=== PATIENT | female | born 1945 | race Caucasian/White ===

== ENCOUNTER 2017-03-01 11:49 | Emergency (ER) | payer MEDICARE ==
[~2017-03-01] VITALS: Ht 168.9 cm; Wt 85.5 kg
[~2017-03-01 11:49] MED LIST: ASPI325T32 PO
[2017-03-01 11:51] VITALS: BP 181/97; PULSE 59; RESP 24; O2SAT 99
[2017-03-01 12:19] LABS: BASOPHILS % (AUTO) 0.1 % (0-3); EOSINOPHILS % (AUTO) 0.4 % (0-5); MONOCYTES % (AUTO) 2.7 % (4-12); Mean Corpuscular Hemoglobin 30.4 pg (27.0-35.0); NEUTROPHILS % (AUTO) 88.8 % (40-74); Platelet Count 159 bil/L (150-400)
--- NOTE | 2017-03-01 13:31 | ED.REPORT ---
HPI-Abd Pain F 40 and Over Date of Service Mar 01, 2017 ED Provider: Mariam Sanchez MD A 71 year old female presents to the ED complaining of abdominal pain onset today at 0540 after the patient was walking back from the bathroom with pain rated 10/10.She has never experienced abdominal pain like this in the past. Associated symptoms include diarrhea, and dry-heaving but no vomit. She reports urinating a little bit at a time with no dysuria. She denies any falls. She is accompanied by , daughter, and son. Nursing Notes Stated Complaint: ABDOMINAL PAIN/LT SIDE Chief Complaint: Female Abdominal Pain Nursing Notes Reviewed: Yes Allergies: Coded Allergies: No Known Allergies (Verified , 08/11/07) Scheduled Aspirin (Aspirin) 325 Mg Tablet 650 MG PO DAILY General Time Seen by MD: 13:29 Chief Complaint Abdominal pain Hx Obtained From: Patient Arrived By: Walk-in Sudden in Onset?: No Onset Occurred: 5 - 8 hours ago (0540 today) Symptom Duration: Since onset Progression since Onset: Unchanged Severity: Current: Pain level 10 out of 10 Severity: Maximum: Pain level 10 out of 10 Recent Healthcare: No recent doctor visit Similar Sx Previous: No Past Medical History Past Medical History Notes: Family Medicine at [facility] in [place] Past Medical History breast cancer cataracts chronic venous stasis in lower extremitis. Reports: Hypertension Past Surgical History mastectomy abdominoplasty, 2000 Smoking History Former Smoker Ambulatory Status Independent Review of Systems Regulalry takes 2 Aspirin. Takes Aleve before bowling for knees. Reports dry-heaving Reports urinating a little bit at a time Denies any falls Constitutional: Denies: Chills, Fever GI: Reports: Abdominal pain, Diarrhea, Denies: Vomiting Female: Denies: Dysuria Complete sys rev & neg: except as marked. Physical Exam Vital Signs Vital Signs (First) Date Time Temp Pulse Resp B/P Pulse Ox O2 Delivery O2 Flow Rate FiO2 03/01/17 11:51 36.1 59 24 181/97 99 Room Air Initial VS: Reviewed General/Constitutional: Awake, Alert Is alert, is talking, and is making sense. Respiratory / Chest: Atraumatic, Breath sounds NL, Breath sounds = bilat, No respiratory distress, No rales, No rhonchi, No wheezing Cardiovascular: Heart rate NL, Regular rhythm, Heart sounds NL, No gallop, No murmurs, No rubs, Peripheral circulation NL (Patient is well perfused.) Abdomen: Soft, No guarding, No rebound Tenderness/Guarding/Rebound: Positive: Tender LLQ... Organomegaly / Mass / Hernia: Positive: Mass present (Fullness in LLQ, concern for hernia. ) Back: Atraumatic, Full range of motion Head / Eyes: Normocephalic Left eye is still dilated from surgery. ENT: Atraumatic, Mucous membranes moist Skin: Atraumatic, Color NL, Warm, Dry Neurologic: Oriented X3, Speech NL Neuro exam is nonfocal. Lower Extremity / Pelvis / MS: No edema Patient does have chronic venous stasis. Interpretation & Diagnostics Lab Results Interpretation Result Diagram: 03/01/17 1212 03/01/17 1212 Test 03/01/17 12:12 White Blood Count 7.9th/mm3 (3.8-10.1) Red Blood Count 4.87mil/mm3 (3.90-5.20) Hemoglobin 14.8g/dL (12.0-15.6) Hematocrit 44.8% (35.0-46.0) Mean Corpuscular Volume 92.0fL (81-100) Mean Corpuscular Hemoglobin 30.4pg (27.0-35.0) Mean Corpuscular Hemoglobin Concent 33.0% (32.0-37.0) Red Cell Distribution Width 13.0% (12.3-15.4) Platelet Count 159bil/L (150-400) Neutrophils (%) (Auto) 88.8% (40-74) Lymphocytes (%) (Auto) 7.7% (14-46) Monocytes (%) (Auto) 2.7% (4-12) Eosinophils (%) (Auto) 0.4% (0-5) Basophils (%) (Auto) 0.1% (0-3) Sodium Level 138mEq/L (134-144) Potassium Level 4.0mEq/L (3.5-5.2) Chloride Level 101mEq/L (97-108) Carbon Dioxide Level 21mmol/L (18-29) Blood Urea Nitrogen 20mg/dL (8-27) Creatinine 0.63mg/dL (0.57-1.00) Estimat Glomerular Filtration Rate 133mL/min (>59) Glucose Level 144mg/dL (60-99) Calcium Level 9.5mg/dL (8.5-10.1) Total Bilirubin 0.6mg/dL (0.0-1.2) Aspartate Amino Transf (AST/SGOT) 16U/L (0-50) Alanine Aminotransferase (ALT/SGPT) 10U/L (0-32) Alkaline Phosphatase 97U/L (25-165) Total Protein 7.0g/dL (6.4-8.4) Albumin 4.6g/dL (3.4-5.0) Hold Sommer Top Tube Received (Received) Re-Eval/Medical Decision Source of Hx: Old records Counseled Regarding: Diagnosis, Lab results, Need for follow-up, When/why to return to ED Discharge & Departure Shift Change Sign-Out Patient Care Transferred: Yes Discussed Complaint(s): Yes Imaging Studies: Ordered, not yet done care transferred to Dr Hays. 71 yo woman with acute LLQ abd pain. CT pending Disposition dependent on studies not yet returned. Primary Impression: Abdominal pain Referrals: NOPROBERTO (PCP) Care Transferred to: Dr. Queen Care Transferred at: 15:00 Amanda Attestation Portions of this note were transcribed by Isidro Sanders. I, Dr. Sanchez personally performed the history, physical exam and medical decision-making; I reviewed and confirmed the accuracy of the information in the transcribed note. Signed by: Amanda Weeks, 03/01/2017, 1510. copies to: Mariam Monique MD Mar 01, 2017 13:31 Isidro Sanders Mar 01, 2017 13:38
[2017-03-01] MEDS ORDERED: 0.9% Sodium Chloride 1,000 ML IV ONE (13:44)
[2017-03-01] MEDS: HYDROmorphone 0.5 mg/0.5 mL iSecure Syringe IVPUSH PRN ×2 (13:56→15:37)
[2017-03-01] MEDS: Ondansetron 2 mg/mL 2 mL Inj IVPUSH PRN ×2 (13:56→15:37)
[2017-03-01 16:00] LABS: APPEARANCE,URINE CLEAR (CLEAR,HAZY); COLOR,URINE YELLOW (YELLOW)
[2017-03-01 16:01] LABS: OCCULT BLOOD,URINE TRACE (NEGATIVE); UROBILINOGEN,URINE NORMAL (NORMAL)
[2017-03-01 16:20] VITALS: BP 165/82; PULSE 70; RESP 15; O2SAT 98
--- NOTE | 2017-03-01 16:42 | DRSVH ---
PROCEDURE: CT ABDOMEN AND PELVIS WITH CONTRAST ([id number]) INDICATIONS: acute abdominal pain TECHNIQUE: After the administration of oral and intravenous contrast, 5 mm thick sections acquired from the diap hragms to the symphysis. 5 mm thick coronal and sagittal reformats were performed. For radiation do se reduction, the following was used: automated exposure control, adjustment of mA and/or kV accordi ng to patient size. COMPARISON: None. FINDINGS: Image quality: Diagnostic. ABDOMEN: Lung bases: Tortuosity of the thoracic aorta is present. The heart is normal in size without pericar dial effusion. Aortic valve calcifications and coronary artery atherosclerosis is present. Calcifie d granuloma within the right middle lobe with mild areas of scarring are present. Additional areas o f bibasilar scarring are noted. There is mild elevation of the right diaphragm. Solid organs: The liver is somewhat hypodense and mildly heterogeneous when compared to the spleen wh ich may be related to timing of the contrast bolus. Slight thickening of a phrygian cap is noted inv olving the gallbladder, which is otherwise unremarkable. The portal vein is patent. The spleen is n ormal in size. The adrenals and pancreas are within normal limits. The kidneys are normal in size. Small bilateral renal cysts appear to be present. No definite solid renal lesion is evident. There is no hydronephrosis. Peritoneum and bowel: There is a small hiatal hernia. Otherwise, the stomach, duodenum, and remainde r of the small bowel loops are nondilated. Air and stool are seen throughout the colon. No definite diverticulosis is present. There is slight prominence of the wall of the splenic flexure with quest ionable adjacent mesenteric edema (image 20, series 602 and image 38, series 2). There may be mild e antonio within the mesentery throughout the abdomen and pelvis without a focal area of more prominent me senteric edema. There is no free fluid, loculated fluid collection, or free air. No ventral hernias are evident. Nodes and vessels: No retroperitoneal or mesenteric adenopathy. Aorta and inferior vena cava are no rmal in caliber. Moderate tortuosity and atherosclerosis of the abdominal aorta is noted. Bones: The bone mineralization is diffusely decreased. Age-appropriate degenerative changes of the i luis thoracolumbar spine are present. No acute fractures are evident. PELVIS: Genitourinary: Bladder wall thickness is normal. There appears to be a moderate-sized diverticulum of the urinary bladder, located along the postero-right lateral aspect of the bladder versus less lik jose a right adnexal cyst. Miscellaneous: No inguinal hernias or adenopathy. No free fluid, loculated fluid collection or free air is evident within the pelvis. Multiple collateral vessels are seen within the upper thigh regio ns (left greater than right) with small lymph nodes present in the inguinal regions. Bones: No suspicious bony lesions. No acute fractures are evident. There are mild degenerative pierre nges of the sacroiliac joints and bilateral hips. IMPRESSION: 1. Nonspecific thickening of the wall of the splenic flexure of the colon may represent focal coliti s versus an incompletely distended loop of colon. No definite evidence of diverticulitis. There is n o bowel obstruction, intra-abdominal abscess, or free fluid. The 2. Moderate-sized postero-lateral right bladder diverticulum versus right adnexal cyst. A pelvic ul trasound may be helpful for better evaluation. 3. Mild scarring/atelectasis within the lung bases. 4. Small hiatal hernia. 5. Nonspecific focal wall thickening along the phrygian cap of the gallbladder is of doubtful signif icance. However, a six-month followup abdominal ultrasound is recommended to reevaluate this finding , particularly if the patient is not experiencing symptoms referrable to the gallbladder. 6. Questionable mild hepatic steatosis. Dictated by: Richard Betancur M.D. on 03/01/2017 at 15:33 Approved by: Richard Betancur M.D. on 03/01/2017 at 15:41
[2017-03-01] MEDS ORDERED: Ondansetron 8 mg ODT Tablet PO ONE (17:05)
[2017-03-01] MEDS ORDERED: Amoxicillin-Clav 875-125 mg Tablet PO ONE (17:05)
[2017-03-01] MEDS ORDERED: HYDROcodone-APAP 5-325 mg Tablet PO ONE (17:05)
[2017-03-01] MEDS ORDERED: ONDA8TAB10 PO (17:11)
[2017-03-01] MEDS ORDERED: HYDR-4003 PO (17:11)
[2017-03-01] MEDS ORDERED: AMOX-366 PO (17:11)
[2017-03-01] MEDS ORDERED: LACT1CAP65 PO (17:12)
[2017-03-01 17:38] VITALS: BP 163/88; PULSE 68; RESP 16; O2SAT 98
== END 2017-03-01 17:39 | disposition home or self-care (01) ==
LOC: SED 11:49
DX: R10.32 Left lower quadrant pain (principal); K52.9 Noninfective gastroenteritis and colitis, unspecified; K44.9 Diaphragmatic hernia without obstruction or gangrene; I10 Essential (primary) hypertension; Z79.82 Long term (current) use of aspirin; Z87.891 Personal history of nicotine dependence
CPT/HCPCS: 36415; 74177; 80053; 81000; 85025; 96361; 96374; 96375; 96376; 99285; J1170; J2405; J7030; Q9967